=== PATIENT | female | born 1960 | race Caucasian/White ===

== ENCOUNTER 2021-11-22 14:33 | Emergency (ER) | payer OTHER, SELFPAY ==
--- NOTE | 2021-11-22 14:37 | ED.URI ---
HPI - URI/Sore Throat General Chief Complaint: Upper Respiratory Infection Stated Complaint: cough Time Seen by Provider: 11/22/21 14:37 Source: patient and RN notes reviewed History of Present Illness HPI Narrative: Patient is 61-year-old female who presents the urgent care with complaints of cough, chills, sweats, sore throat, nausea, fever and runny nose. Patient states that her symptoms started approximately 3 days ago. Patient states she just got confirmation that a couple family members does test positive for Covid. Patient has had the Covid vaccine. States that she has been using [id number] medication as needed for her symptoms. Patient does have a history of COPD. Patient is currently denying of shortness of breath or chest pain. No other acute complaints. No acute distress noted. Patient aware of the plan of care. Some parts of this dictation were generated by voice recognition software and may contain typographical and/or grammatical inaccuracies. Related Data Home Medications Medication Instructions Recorded Confirmed aripiprazole mg 11/22/21 buspirone mg 11/22/21 trazodone 11/22/21 Allergies Allergy/AdvReac Type Severity Reaction Status Date / Time naproxen Allergy Rash Verified 11/22/21 14:42 Review of Systems Review of Systems: CONSTITUTIONAL: Reports of fever, chills, sweats EYES: Denies visual changes, redness, or discharge. ENT: Reports of rhinorrhea, congestion, sore throat CARDIOVASCULAR: Denies chest pain, palpitations, or edema. RESPIRATORY: Reports of cough and shortness of breath intermittently GASTROINTESTINAL: Denies abdominal pain, nausea, vomiting, or diarrhea. GENITOURINARY: Denies dysuria or hematuria. SKIN: Denies rash or itching. MUSCULOSKELETAL: Denies back pain, joint pain, or myalgia. NEUROLOGIC: Denies headache, numbness, or weakness. All other systems reviewed are negative, except as documented in HPI. PMFSH Comments At the time of my signature, I reviewed and agree with the nursing past medical, surgical, social, and family history. There is no relevant family history pertinent to the patient complaint. Exam Narrative: GENERAL: This is a well-nourished, well-developed patient, in no apparent distress. HEAD: normocephalic, atraumatic. Frontal sinus pressure EYES: PERRL. Sclera clear/white. Vision is grossly intact. EARS: External ears normal, auditory canals clear and without drainage, TMs normal without perforation. Hearing grossly intact. NOSE: External nose normal with no obvious nasal discharge. Bilateral erythemic nares with clear to yellow rhinorrhea THROAT: Mucous membranes moist, posterior pharynx clear. Moderate postnasal drainage NECK: Neck supple CARDIOVASCULAR: Regular rate and rhythm without murmurs, gallops, or rubs. RESPIRATORY: Bilateral lower lobe coarse with expiratory wheezes SKIN: warm, intact with no suspicious lesions or rash, good texture and turgor. NEURO: awake, alert, and oriented to person, place and time. There were no obvious focal neurologic abnormalities. EXTREMITIES: No clubbing, cyanosis, or edema. Course Vital Signs Vital signs: Vital Signs Temperature 98.8 F 11/22/21 14:44 Pulse Rate 92 11/22/21 14:44 Respiratory Rate 16 11/22/21 14:44 Blood Pressure 179/111 H 11/22/21 14:44 Pulse Oximetry 100 11/22/21 14:44 Temperature 98.8 F 11/22/21 14:44 Pulse Rate 92 11/22/21 14:44 Respiratory Rate 16 11/22/21 14:44 Blood Pressure 179/111 H 11/22/21 14:44 Pulse Oximetry 100 11/22/21 14:44 Reviewed-patient is informed that they may have pre-hypertension or hypertension based on a blood pressure reading in the department. I recommend the patient call the primary care provider listed on their discharge instructions or a physician of their choice this week to arrange follow-up for further evaluation of possible pre-hypertension or hypertension. MDM - URI/Sore Throat MDM Narrative Medical decision beny
[2021-11-22 14:44] VITALS: BP 179/111; PULSE 92; RESP 16; TEMP 37.1; O2SAT 100
[2021-11-23 16:52] LABS: SARS-CoV-2 RNA PCR Negative
== END 2021-11-22 15:36 | disposition home or self-care (01) ==
PROVIDERS: Emergency Provider Nurse Practitioner Family; PCP Internal Medicine
DX: J44.9 Chronic obstructive pulmonary disease, unspecified (principal); Z20.822 Contact with and (suspected) exposure to COVID-19
CPT/HCPCS: 87426; 87804; 99213; C9803; G0463; U0003; U0005